=== PATIENT | female | born 1965 | race Two or more races ===

== ENCOUNTER 2019-05-25 16:38 | Inpatient (IN) | payer OTHER ==
[~2019-05-25] VITALS: Ht 165.1 cm; Wt 69.4 kg
[2019-05-25] MEDS ORDERED: HYDR-4076 GT (16:57)
[2019-05-25] MEDS ORDERED: LEVO50TA8 GT (16:57)
[2019-05-25] MEDS ORDERED: ASPI-1169 GT (16:57)
[2019-05-25] MEDS ORDERED: EPOE1VIA7 SQ (16:57)
[2019-05-25] MEDS ORDERED: LISI10TA5 GT (16:57)
[2019-05-25] MEDS ORDERED: ISOS40TA16 GT (16:57)
[2019-05-25] MEDS ORDERED: SIMV-49 GT (16:57)
[2019-05-25] MEDS ORDERED: GABA-534 GT (16:57)
[2019-05-25] MEDS ORDERED: NITR0.4T48 SL (16:57)
[2019-05-25] MEDS ORDERED: ACET-868 GT (16:57)
[2019-05-25] MEDS ORDERED: FAMO20TA8 GT (16:57)
[2019-05-25] MEDS ORDERED: HALO2TAB GT (16:57)
[2019-05-25] MEDS ORDERED: CLON0.1T GT (16:57)
[2019-05-25] MEDS ORDERED: ONDA4TAB5 GT (16:57)
[2019-05-25] MEDS ORDERED: DOCU50LI GT (16:57)
[2019-05-25] MEDS ORDERED: NUT.237L67 GT (16:57)
[2019-05-25] MEDS ORDERED: AMLO10TA7 GT (16:57)
[2019-05-25] MEDS ORDERED: CARV3.122 GT (16:57)
[2019-05-25] MEDS ORDERED: ESOM40CA GT (16:57)
[2019-05-25] MEDS ORDERED: MULT-447 GT (16:57)
[2019-05-25 17:43] LABS: BASOPHILS # (AUTO) 0.1 /CMM (0.0-0.2); BASOPHILS % (AUTO) 3.6 % (0.0-2.0); EOSINOPHILS % (AUTO) 5.5 % (0.0-6.0); HEMATOCRIT 24 % (33-45); LYMPHOCYTES # (AUTO) 0.9 /CMM (0.8-4.8); LYMPHOCYTES % (AUTO) 23.9 % (20.0-44.0); MEAN CORPUSCULAR HGB CONC 33 g/dl (31.0-36.0); MEAN CORPUSCULAR VOLUME 91 fL (82-100); MONOCYTES # (AUTO) 0.3 /CMM (0.1-1.30); MONOCYTES % (AUTO) 7.1 % (2.0-12.0); NEUTROPHILS # (AUTO) 2.3 /CMM (1.8-8.9); NEUTROPHILS % (AUTO) 59.9 % (43.0-81.0); PLATELET COUNT (AUTO) 140 /CMM (150-450); RED BLOOD CELL COUNT(AUTO) 2.64 MIL/uL (4.0-5.2); WHITE BLOOD COUNT (AUTO) 3.8 K/uL (4.3-11.0)
[2019-05-25 17:48] LABS: CALCIUM, SERUM 8.9 mg/dL (8.5-10.1); CREATININE 2.5 mg/dL (0.6-1.3); POTASSIUM 3.9 mmol/L (3.5-5.1)
[2019-05-25] MEDS ORDERED: NITROGLYCERIN PACKET 1 GM PACKET TOP ONE (18:00)
[2019-05-25] MEDS ORDERED: NITROGLYCERIN PACKET 1 GM PACKET ONE (18:00)
[2019-05-25] MEDS ORDERED: ASPIRIN 81 MG TAB.CHEW PO ONE (18:00)
[2019-05-25] MEDS ORDERED: ASPIRIN 81 MG TAB.CHEW ONE (18:01)
[2019-05-25] MEDS ORDERED: MAG HYDROX/AL HYDROX/SIMETH 30 ML UDC PO PRN (19:30)
[2019-05-25] MEDS ORDERED: DOCUSATE SODIUM LIQ 100 MG/10 ML UDC GT PRN (19:30)
[2019-05-25] MEDS ORDERED: NEPRO VAN 237 ML CAN GT SCH (19:30)
[2019-05-25] MEDS ORDERED: MAGNESIUM HYDROXIDE 30 ML UDC PO PRN (19:30)
[2019-05-25] MEDS ORDERED: Z GUARD REMEDY 2 OZ OINT TP PRN (19:30)
[2019-05-25] MEDS ORDERED: ACETAMINOPHEN 325 MG TABLET PO PRN (19:30)
[2019-05-25] MEDS ORDERED: Medication Not On Formulary EA (Ondansetron Hcl (Zofran) 4 MG) GT PRN (19:30)
[2019-05-25 20:00] VITALS: BP 116/51
[2019-05-25] MEDS: ISOSORBIDE DINITRATE (20MG) 20 MG TABLET GT SCH (20:52)
[2019-05-25] MEDS: ENOXAPARIN SODIUM 30 MG/0.3 ML DISP.SYRIN SQ SCH ×2 (20:53→22:12)
[2019-05-26] VITALS: BP 147/50
[2019-05-26] MEDS: ACETAMINOPHEN 325 MG TABLET PO PRN (03:10)
[2019-05-26 04:00] VITALS: BP 132/52
[2019-05-26 08:00] VITALS: BP 157/61
[2019-05-26] MEDS: HALOPERIDOL 1 MG TABLET GT SCH ×4 (09:00→18:30)
[2019-05-26] MEDS: PANTOPRAZOLE 40 MG/PACK PACK GT SCH (10:52)
[2019-05-26] MEDS: GABAPENTIN 300 MG CAPSULE GT SCH ×3 (10:52→18:30)
[2019-05-26] MEDS: CARVEDILOL 3.125 MG TABLET GT SCH ×2 (10:52→18:30)
[2019-05-26] MEDS: ISOSORBIDE DINITRATE (20MG) 20 MG TABLET GT SCH ×2 (10:53→18:30)
[2019-05-26] MEDS: AMLODIPINE BESYLATE 10 MG TABLET GT SCH (10:53)
[2019-05-26] MEDS: FAMOTIDINE (20 MG) 20 MG TABLET GT SCH (10:53)
[2019-05-26] MEDS: MULTIVITAMINS,THERAGRAN 1 UDTAB TABLET GT SCH (10:53)
[2019-05-26] MEDS: ASPIRIN 81 MG TAB.CHEW GT SCH (10:53)
[2019-05-26] MEDS: LEVOTHYROXINE SODIUM 50 MCG TABLET GT SCH (10:54)
[2019-05-26] MEDS: CLONIDINE HCL 0.1 MG TABLET GT SCH ×2 (12:00→19:10)
[2019-05-26] MEDS: hydrALAZINE HCL 25 MG TABLET GT SCH ×2 (12:00→19:10)
[2019-05-26] MEDS: LISINOPRIL (10MG) 10 MG TABLET GT SCH (12:00)
[2019-05-26] MEDS ORDERED: IOHEXOL-350 100 ML VIAL IV ONE (12:12)
[2019-05-26] MEDS ORDERED: IV NS 0.9% 250 ML IV ONE (12:13)
[2019-05-26] MEDS ORDERED: METOPROLOL TARTRATE INJ 5 MG/5 ML AMPUL IVP PRN (12:30)
[2019-05-26] MEDS ORDERED: NITROGLYCERIN 0.4 MG/TAB BOTTLE SL ONE (12:30)
[2019-05-26] MEDS ORDERED: METOPROLOL TARTRATE INJ 5 MG/5 ML AMPUL ONE (14:22)
[2019-05-26 16:00] VITALS: BP 129/68
[2019-05-26 16:49] LABS: ABG BASE EXCESS 5.6 mmol/L; ABG OXYGEN SATURATION 90.7 % (92.0-98.5); ABG PCO2 47.9 mmHg (35.0-45.0); ABG PH 7.424 (7.350-7.450); ABG PO2 62.2 mmHg (75.0-100.0); AaDO2 30.2 mmHg; COHb 0.7 % (0.5-1.5); MetHb 0.6 % (0.0-1.5); O2Hb 89.5 % (94.0-97.0); SITE, ABG Right Brachial
[2019-05-26 20:00] VITALS: BP 133/51
[2019-05-26 22:02] LABS: BASOPHILS # (AUTO) 0.2 /CMM (0.0-0.2); EOSINOPHILS % (AUTO) 8.4 % (0.0-6.0); HEMATOCRIT 21 % (33-45); HEMOGLOBIN 7.1 g/dL (11.5-14.8); LYMPHOCYTES # (AUTO) 1.2 /CMM (0.8-4.8); LYMPHOCYTES % (AUTO) 27.9 % (20.0-44.0); MEAN CORPUSCULAR HGB CONC 34 g/dl (31.0-36.0); MEAN CORPUSCULAR VOLUME 91 fL (82-100); MONOCYTES # (AUTO) 0.4 /CMM (0.1-1.30); MONOCYTES % (AUTO) 8.9 % (2.0-12.0); NEUTROPHILS # (AUTO) 2.1 /CMM (1.8-8.9); NEUTROPHILS % (AUTO) 50.8 % (43.0-81.0); PLATELET COUNT (AUTO) 140 /CMM (150-450); WHITE BLOOD COUNT (AUTO) 4.2 K/uL (4.3-11.0)
[2019-05-26 22:23] LABS: ALBUMIN 2.3 g/dL (3.4-5.0); BILIRUBIN,TOTAL 0.4 mg/dL (0.2-1.0); CALCIUM, SERUM 8.1 mg/dL (8.5-10.1); CREATININE 3.1 mg/dL (0.6-1.3); POTASSIUM 3.9 mmol/L (3.5-5.1); TOTAL PROTEIN, SERUM 5.5 g/dL (6.4-8.2)
[2019-05-26 22:24] LABS: MAGNESIUM 2.3 mg/dL (1.8-2.4); PHOSPHORUS 2.4 mg/dL (2.5-4.9)
[2019-05-26 22:58] LABS: THYROID STIMULATING HORMONE 4.477 uIU/mL (0.358-3.74)
[2019-05-26] MEDS ORDERED: NEPRO 1,000 ML BOTTLE GT PRN (23:00)
[2019-05-26] MEDS: SIMVASTATIN 20 MG TABLET GT SCH (23:36)
[2019-05-26] MEDS: HYDROCODONE/APAP 5/325MG 1 EACH TABLET PO PRN (23:43)
[2019-05-27 08:00] VITALS: BP 150/64
[2019-05-27] MEDS: HALOPERIDOL 1 MG TABLET GT SCH ×3 (08:31→18:09)
[2019-05-27] MEDS: ONDANSETRON HCL/PF 4 MG/2 ML VIAL IVP PRN ×2 (08:32→13:48)
[2019-05-27] MEDS: GABAPENTIN 300 MG CAPSULE GT SCH ×3 (09:00→18:10)
[2019-05-27] MEDS ORDERED: REGADENOSON 0.4 MG/5 ML DISP.SYRIN IVP ONE (09:00)
[2019-05-27] MEDS: hydrALAZINE HCL 25 MG TABLET GT SCH ×2 (09:00→18:50)
[2019-05-27] MEDS: ISOSORBIDE DINITRATE (20MG) 20 MG TABLET GT SCH ×2 (09:00→18:09)
[2019-05-27] MEDS: CLONIDINE HCL 0.1 MG TABLET GT SCH ×2 (09:00→18:50)
[2019-05-27] MEDS: CARVEDILOL 3.125 MG TABLET GT SCH ×2 (09:00→18:10)
[2019-05-27 16:00] VITALS: BP 155/63
[2019-05-27] MEDS: ASPIRIN 81 MG TAB.CHEW GT SCH (16:28)
[2019-05-27] MEDS: FAMOTIDINE (20 MG) 20 MG TABLET GT SCH (16:31)
[2019-05-27] MEDS: LEVOTHYROXINE SODIUM 50 MCG TABLET GT SCH (16:31)
[2019-05-27] MEDS: LISINOPRIL (10MG) 10 MG TABLET GT SCH (16:31)
[2019-05-27] MEDS: MULTIVITAMINS,THERAGRAN 1 UDTAB TABLET GT SCH (16:31)
[2019-05-27] MEDS: PANTOPRAZOLE 40 MG/PACK PACK GT SCH (16:31)
[2019-05-27] MEDS: EPOETIN ALFA (10,000 UNIT) 10,000 UNIT/ML VIAL SQ SCH (16:36)
[2019-05-27] MEDS: AMLODIPINE BESYLATE 10 MG TABLET GT SCH (16:37)
[2019-05-27 20:35] VITALS: BP 129/50
[2019-05-27] MEDS: IV D5/ 0.9% NACL 1,000 ML IV PRN (20:35)
[2019-05-27] MEDS: SIMVASTATIN 20 MG TABLET GT SCH (22:59)
[2019-05-28 08:00] VITALS: BP 155/77
[2019-05-28] MEDS: HALOPERIDOL 1 MG TABLET GT SCH ×3 (08:56→17:09)
[2019-05-28] MEDS: GABAPENTIN 300 MG CAPSULE GT SCH ×3 (08:56→17:09)
[2019-05-28] MEDS: MULTIVITAMINS,THERAGRAN 1 UDTAB TABLET GT SCH (08:56)
[2019-05-28] MEDS: PANTOPRAZOLE 40 MG/PACK PACK GT SCH (08:56)
[2019-05-28] MEDS: FAMOTIDINE (20 MG) 20 MG TABLET GT SCH (08:56)
[2019-05-28] MEDS: LEVOTHYROXINE SODIUM 50 MCG TABLET GT SCH (08:56)
[2019-05-28] MEDS: LISINOPRIL (10MG) 10 MG TABLET GT SCH (09:00)
[2019-05-28] MEDS: ISOSORBIDE DINITRATE (20MG) 20 MG TABLET GT SCH ×2 (09:00→17:08)
[2019-05-28] MEDS: CLONIDINE HCL 0.1 MG TABLET GT SCH ×2 (09:00→17:09)
[2019-05-28] MEDS: hydrALAZINE HCL 25 MG TABLET GT SCH ×2 (09:00→17:09)
[2019-05-28] MEDS: CARVEDILOL 3.125 MG TABLET GT SCH ×2 (09:00→17:00)
[2019-05-28] MEDS: AMLODIPINE BESYLATE 10 MG TABLET GT SCH (09:00)
[2019-05-28] MEDS: ACETAMINOPHEN 325 MG TABLET PO PRN (09:35)
[2019-05-28 11:38] LABS: BASOPHILS # (AUTO) 0.1 /CMM (0.0-0.2); BASOPHILS % (AUTO) 2.9 % (0.0-2.0); EOSINOPHILS % (AUTO) 7.1 % (0.0-6.0); HEMATOCRIT 21 % (33-45); LYMPHOCYTES # (AUTO) 0.7 /CMM (0.8-4.8); LYMPHOCYTES % (AUTO) 14.5 % (20.0-44.0); MEAN CORPUSCULAR HGB CONC 33 g/dl (31.0-36.0); MEAN CORPUSCULAR VOLUME 93 fL (82-100); MONOCYTES # (AUTO) 0.3 /CMM (0.1-1.30); MONOCYTES % (AUTO) 6.5 % (2.0-12.0); NEUTROPHILS # (AUTO) 3.1 /CMM (1.8-8.9); PLATELET COUNT (AUTO) 137 /CMM (150-450); RED BLOOD CELL COUNT(AUTO) 2.29 MIL/uL (4.0-5.2); WHITE BLOOD COUNT (AUTO) 4.5 K/uL (4.3-11.0)
[2019-05-28 12:25] LABS: CREATININE 3.2 mg/dL (0.6-1.3); MAGNESIUM 2.5 mg/dL (1.8-2.4); PHOSPHORUS 2.6 mg/dL (2.5-4.9)
[2019-05-28] MEDS: PANTOPRAZOLE 40 MG VIAL IV SCH (13:07)
[2019-05-28 15:46] VITALS: BP 118/99
[2019-05-28 16:00] VITALS: BP 127/58
[2019-05-28 20:01] VITALS: BP 124/61
[2019-05-28 20:20] VITALS: BP 124/61
[2019-05-28] MEDS: IV D5/ 0.9% NACL 1,000 ML IV PRN (20:51)
[2019-05-28] MEDS: SIMVASTATIN 20 MG TABLET GT SCH (21:16)
[2019-05-29] VITALS (8 sets, daily range): BP systolic 122–156; BP diastolic 52–79
[2019-05-29] MEDS: LEVOTHYROXINE SODIUM 50 MCG TABLET GT SCH (07:30)
[2019-05-29] MEDS: hydrALAZINE HCL 25 MG TABLET GT SCH ×2 (08:31→17:58)
[2019-05-29] MEDS: CARVEDILOL 3.125 MG TABLET GT SCH ×2 (08:31→17:58)
[2019-05-29] MEDS: CLONIDINE HCL 0.1 MG TABLET GT SCH ×2 (08:31→17:57)
[2019-05-29] MEDS: LISINOPRIL (10MG) 10 MG TABLET GT SCH (08:32)
[2019-05-29] MEDS: GABAPENTIN 300 MG CAPSULE GT SCH ×3 (08:32→17:57)
[2019-05-29] MEDS: FAMOTIDINE (20 MG) 20 MG TABLET GT SCH (08:32)
[2019-05-29] MEDS: HALOPERIDOL 1 MG TABLET GT SCH ×3 (08:32→17:57)
[2019-05-29] MEDS: MULTIVITAMINS,THERAGRAN 1 UDTAB TABLET GT SCH (08:32)
[2019-05-29] MEDS: ISOSORBIDE DINITRATE (20MG) 20 MG TABLET GT SCH ×2 (08:32→17:57)
[2019-05-29] MEDS: AMLODIPINE BESYLATE 10 MG TABLET GT SCH (08:32)
[2019-05-29 09:27] LABS: BASOPHILS # (AUTO) 0.1 /CMM (0.0-0.2); BASOPHILS % (AUTO) 1.3 % (0.0-2.0); EOSINOPHILS % (AUTO) 7.1 % (0.0-6.0); HEMATOCRIT 22 % (33-45); HEMOGLOBIN 7.3 g/dL (11.5-14.8); LYMPHOCYTES # (AUTO) 0.6 /CMM (0.8-4.8); LYMPHOCYTES % (AUTO) 15.1 % (20.0-44.0); MEAN CORPUSCULAR HGB CONC 33 g/dl (31.0-36.0); MEAN CORPUSCULAR VOLUME 94 fL (82-100); MONOCYTES # (AUTO) 0.3 /CMM (0.1-1.30); MONOCYTES % (AUTO) 7.4 % (2.0-12.0); NEUTROPHILS # (AUTO) 2.8 /CMM (1.8-8.9); NEUTROPHILS % (AUTO) 69.1 % (43.0-81.0); PLATELET COUNT (AUTO) 151 /CMM (150-450); RED BLOOD CELL COUNT(AUTO) 2.37 MIL/uL (4.0-5.2)
[2019-05-29 09:42] LABS: MAGNESIUM 1.9 mg/dL (1.8-2.4); PHOSPHORUS 1.7 mg/dL (2.5-4.9)
[2019-05-29] MEDS: ACETAMINOPHEN 325 MG TABLET PO PRN (10:44)
[2019-05-29 11:25] LABS: CALCIUM, SERUM 7.9 mg/dL (8.5-10.1); CREATININE 2.4 mg/dL (0.6-1.3); POTASSIUM 3.3 mmol/L (3.5-5.1)
[2019-05-29] MEDS: PANTOPRAZOLE 40 MG VIAL IV SCH (13:42)
[2019-05-29] MEDS: EPOETIN ALFA (10,000 UNIT) 10,000 UNIT/ML VIAL SQ SCH (16:43)
[2019-05-29] MEDS: IV D5/ 0.9% NACL 1,000 ML IV PRN (18:06)
[2019-05-29] MEDS: SIMVASTATIN 20 MG TABLET GT SCH (22:31)
[2019-05-30] VITALS (7 sets, daily range): BP systolic 106–161; BP diastolic 52–71
[2019-05-30] MEDS: NITROGLYCERIN 0.4 MG/TAB BOTTLE SL PRN ×2 (01:32→01:38)
[2019-05-30 07:35] LABS: BASOPHILS # (AUTO) 0.1 /CMM (0.0-0.2); BASOPHILS % (AUTO) 2.8 % (0.0-2.0); EOSINOPHILS % (AUTO) 6.2 % (0.0-6.0); HEMATOCRIT 31 % (33-45); HEMOGLOBIN 10.4 g/dL (11.5-14.8); LYMPHOCYTES # (AUTO) 0.8 /CMM (0.8-4.8); LYMPHOCYTES % (AUTO) 16.3 % (20.0-44.0); MEAN CORPUSCULAR HGB CONC 34 g/dl (31.0-36.0); MEAN CORPUSCULAR VOLUME 93 fL (82-100); MONOCYTES # (AUTO) 0.4 /CMM (0.1-1.30); NEUTROPHILS # (AUTO) 3.3 /CMM (1.8-8.9); NEUTROPHILS % (AUTO) 66.7 % (43.0-81.0); PLATELET COUNT (AUTO) 134 /CMM (150-450); RED BLOOD CELL COUNT(AUTO) 3.31 MIL/uL (4.0-5.2); WHITE BLOOD COUNT (AUTO) 4.9 K/uL (4.3-11.0)
[2019-05-30 07:40] LABS: CALCIUM, SERUM 8.5 mg/dL (8.5-10.1); CREATININE 2.3 mg/dL (0.6-1.3); PHOSPHORUS 1.6 mg/dL (2.5-4.9); POTASSIUM 3.5 mmol/L (3.5-5.1)
[2019-05-30] MEDS: CARVEDILOL 3.125 MG TABLET GT SCH ×2 (09:21→17:21)
[2019-05-30] MEDS: hydrALAZINE HCL 25 MG TABLET GT SCH ×2 (09:21→17:20)
[2019-05-30] MEDS: LEVOTHYROXINE SODIUM 50 MCG TABLET GT SCH (09:21)
[2019-05-30] MEDS: CLONIDINE HCL 0.1 MG TABLET GT SCH ×2 (09:21→17:20)
[2019-05-30] MEDS: HALOPERIDOL 1 MG TABLET GT SCH ×3 (09:21→17:21)
[2019-05-30] MEDS: AMLODIPINE BESYLATE 10 MG TABLET GT SCH (09:22)
[2019-05-30] MEDS: GABAPENTIN 300 MG CAPSULE GT SCH ×3 (09:22→17:21)
[2019-05-30] MEDS: LISINOPRIL (10MG) 10 MG TABLET GT SCH (09:22)
[2019-05-30] MEDS: FAMOTIDINE (20 MG) 20 MG TABLET GT SCH (09:22)
[2019-05-30] MEDS: ISOSORBIDE DINITRATE (20MG) 20 MG TABLET GT SCH ×2 (09:22→17:21)
[2019-05-30] MEDS: MULTIVITAMINS,THERAGRAN 1 UDTAB TABLET GT SCH (09:22)
[2019-05-30] MEDS: PANTOPRAZOLE 40 MG VIAL IV SCH (13:53)
[2019-05-30] MEDS ORDERED: NEUTRA PHOS 1 POWD.PACKET GT ONE ×2 (15:30→18:00)
[2019-05-30] MEDS: NEPRO 1,000 ML BOTTLE GT PRN (17:21)
[2019-05-30] MEDS: IV D5/ 0.9% NACL 1,000 ML IV PRN (19:38)
[2019-05-30] MEDS: SIMVASTATIN 20 MG TABLET GT SCH (21:10)
[2019-05-31] MEDS: MORPHINE SULFATE INJ 4 MG/ML DISP.SYRIN IV PRN (01:38)
[2019-05-31] MEDS: LEVOTHYROXINE SODIUM 50 MCG TABLET GT SCH (07:30)
[2019-05-31 08:00] VITALS: BP 133/74
[2019-05-31] MEDS: hydrALAZINE HCL 25 MG TABLET GT SCH ×2 (08:25→17:03)
[2019-05-31] MEDS: HALOPERIDOL 1 MG TABLET GT SCH ×3 (08:25→17:03)
[2019-05-31] MEDS: CLONIDINE HCL 0.1 MG TABLET GT SCH ×2 (08:25→17:03)
[2019-05-31] MEDS: CARVEDILOL 3.125 MG TABLET GT SCH ×2 (08:25→17:04)
[2019-05-31] MEDS: FAMOTIDINE (20 MG) 20 MG TABLET GT SCH (08:26)
[2019-05-31] MEDS: AMLODIPINE BESYLATE 10 MG TABLET GT SCH (08:26)
[2019-05-31] MEDS: LISINOPRIL (10MG) 10 MG TABLET GT SCH (08:26)
[2019-05-31] MEDS: MULTIVITAMINS,THERAGRAN 1 UDTAB TABLET GT SCH (08:26)
[2019-05-31] MEDS: GABAPENTIN 300 MG CAPSULE GT SCH ×3 (08:26→17:03)
[2019-05-31] MEDS: ISOSORBIDE DINITRATE (20MG) 20 MG TABLET GT SCH ×2 (08:26→17:03)
[2019-05-31] MEDS: PANTOPRAZOLE 40 MG VIAL IV SCH (12:08)
[2019-05-31 13:08] LABS: BASOPHILS # (AUTO) 0.1 /CMM (0.0-0.2); BASOPHILS % (AUTO) 1.4 % (0.0-2.0); EOSINOPHILS % (AUTO) 5.8 % (0.0-6.0); HEMATOCRIT 30 % (33-45); HEMOGLOBIN 10.1 g/dL (11.5-14.8); LYMPHOCYTES # (AUTO) 0.7 /CMM (0.8-4.8); LYMPHOCYTES % (AUTO) 16.5 % (20.0-44.0); MEAN CORPUSCULAR HGB CONC 33 g/dl (31.0-36.0); MEAN CORPUSCULAR VOLUME 94 fL (82-100); MONOCYTES # (AUTO) 0.4 /CMM (0.1-1.30); MONOCYTES % (AUTO) 8.3 % (2.0-12.0); PLATELET COUNT (AUTO) 142 /CMM (150-450); RED BLOOD CELL COUNT(AUTO) 3.22 MIL/uL (4.0-5.2); WHITE BLOOD COUNT (AUTO) 4.4 K/uL (4.3-11.0)
[2019-05-31 13:19] LABS: CALCIUM, SERUM 8.4 mg/dL (8.5-10.1); CREATININE 2.6 mg/dL (0.6-1.3); POTASSIUM 4.5 mmol/L (3.5-5.1)
[2019-05-31 16:00] VITALS: BP 151/65
[2019-05-31] MEDS: ACETAMINOPHEN 325 MG TABLET PO PRN (17:05)
[2019-05-31] MEDS: NEPRO 1,000 ML BOTTLE GT PRN (17:06)
[2019-05-31] MEDS: IV D5/ 0.9% NACL 1,000 ML IV PRN (19:18)
[2019-05-31 20:00] VITALS: BP 137/51
[2019-05-31] MEDS: SIMVASTATIN 20 MG TABLET GT SCH (21:15)
[2019-05-31 21:28] VITALS: BP 137/51
[2019-06-01] MEDS: HYDROCODONE/APAP 5/325MG 1 EACH TABLET PO PRN (01:38)
[2019-06-01 08:16] VITALS: BP 141/68
[2019-06-01] MEDS: CARVEDILOL 3.125 MG TABLET GT SCH ×2 (09:26→18:31)
[2019-06-01] MEDS: ISOSORBIDE DINITRATE (20MG) 20 MG TABLET GT SCH ×2 (09:26→18:30)
[2019-06-01] MEDS: MULTIVITAMINS,THERAGRAN 1 UDTAB TABLET GT SCH (09:27)
[2019-06-01] MEDS: GABAPENTIN 300 MG CAPSULE GT SCH ×3 (09:27→18:31)
[2019-06-01] MEDS: HALOPERIDOL 1 MG TABLET GT SCH ×3 (09:27→18:31)
[2019-06-01] MEDS: FAMOTIDINE (20 MG) 20 MG TABLET GT SCH (09:27)
[2019-06-01] MEDS: AMLODIPINE BESYLATE 10 MG TABLET GT SCH (09:27)
[2019-06-01] MEDS: LEVOTHYROXINE SODIUM 50 MCG TABLET GT SCH (09:30)
[2019-06-01] MEDS ORDERED: PANT40TA2 PO (10:03)
[2019-06-01] MEDS: LISINOPRIL (10MG) 10 MG TABLET GT SCH (11:04)
[2019-06-01] MEDS: CLONIDINE HCL 0.1 MG TABLET GT SCH ×2 (12:00→18:31)
[2019-06-01] MEDS: hydrALAZINE HCL 25 MG TABLET GT SCH ×2 (12:00→19:15)
[2019-06-01] MEDS: PANTOPRAZOLE 40 MG VIAL IV SCH (13:57)
[2019-06-01] MEDS: EPOETIN ALFA (10,000 UNIT) 10,000 UNIT/ML VIAL SQ SCH (16:33)
[2019-06-01] MEDS: NEPRO 1,000 ML BOTTLE GT PRN (16:41)
[2019-06-01 17:21] LABS: BASOPHILS # (AUTO) 0.1 /CMM (0.0-0.2); BASOPHILS % (AUTO) 1.9 % (0.0-2.0); EOSINOPHILS % (AUTO) 5.9 % (0.0-6.0); HEMATOCRIT 31 % (33-45); HEMOGLOBIN 10.3 g/dL (11.5-14.8); LYMPHOCYTES # (AUTO) 0.8 /CMM (0.8-4.8); LYMPHOCYTES % (AUTO) 11.4 % (20.0-44.0); MEAN CORPUSCULAR HGB CONC 33 g/dl (31.0-36.0); MEAN CORPUSCULAR VOLUME 95 fL (82-100); MONOCYTES # (AUTO) 0.5 /CMM (0.1-1.30); MONOCYTES % (AUTO) 7.7 % (2.0-12.0); NEUTROPHILS # (AUTO) 4.9 /CMM (1.8-8.9); NEUTROPHILS % (AUTO) 73.1 % (43.0-81.0); PLATELET COUNT (AUTO) 133 /CMM (150-450); RED BLOOD CELL COUNT(AUTO) 3.31 MIL/uL (4.0-5.2); WHITE BLOOD COUNT (AUTO) 6.7 K/uL (4.3-11.0)
[2019-06-01 17:37] LABS: CALCIUM, SERUM 9.7 mg/dL (8.5-10.1); CREATININE 3.3 mg/dL (0.6-1.3); MAGNESIUM 2.2 mg/dL (1.8-2.4); PHOSPHORUS 2.5 mg/dL (2.5-4.9); POTASSIUM 3.6 mmol/L (3.5-5.1)
[2019-06-01 19:55] VITALS: BP 139/57
[2019-06-01 20:13] VITALS: BP 139/57
[2019-06-01] MEDS: IV D5/ 0.9% NACL 1,000 ML IV PRN (20:33)
[2019-06-01] MEDS: SIMVASTATIN 20 MG TABLET GT SCH (21:08)
[2019-06-02] MEDS: ACETAMINOPHEN 325 MG TABLET PO PRN (01:49)
[2019-06-02] MEDS: HYDROCODONE/APAP 5/325MG 1 EACH TABLET PO PRN (02:34)
[2019-06-02] MEDS: MORPHINE SULFATE INJ 4 MG/ML DISP.SYRIN IV PRN (05:12)
[2019-06-02 08:00] VITALS: BP 132/68
[2019-06-02] MEDS: LEVOTHYROXINE SODIUM 50 MCG TABLET GT SCH (08:14)
[2019-06-02] MEDS: MULTIVITAMINS,THERAGRAN 1 UDTAB TABLET GT SCH (08:50)
[2019-06-02] MEDS: GABAPENTIN 300 MG CAPSULE GT SCH ×2 (08:50→13:47)
[2019-06-02] MEDS: HALOPERIDOL 1 MG TABLET GT SCH ×2 (08:50→13:47)
[2019-06-02] MEDS: FAMOTIDINE (20 MG) 20 MG TABLET GT SCH (08:50)
[2019-06-02] MEDS: AMLODIPINE BESYLATE 10 MG TABLET GT SCH (08:51)
[2019-06-02] MEDS: CLONIDINE HCL 0.1 MG TABLET GT SCH (08:51)
[2019-06-02] MEDS: ISOSORBIDE DINITRATE (20MG) 20 MG TABLET GT SCH (08:51)
[2019-06-02] MEDS: hydrALAZINE HCL 25 MG TABLET GT SCH (08:51)
[2019-06-02] MEDS: CARVEDILOL 3.125 MG TABLET GT SCH (08:51)
[2019-06-02] MEDS: LISINOPRIL (10MG) 10 MG TABLET GT SCH (08:51)
[2019-06-02] MEDS: PANTOPRAZOLE 40 MG VIAL IV SCH (12:54)
[2019-06-02 16:00] VITALS: BP 123/60
== END 2019-06-02 16:22 | disposition home or self-care (01) | DRG 241 ==
LOC: ER 16:41 → TELE 19:35 → MED 05-26 09:02
PROVIDERS: ADMIT Internal Medicine; ATTEND Internal Medicine
PROC: 05HB33Z Insertion of Infusion Device into Right Basilic Vein, Percutaneous Approach (ICD-10-PCS; principal; 2019-05-26)
PROC: 5A1D70Z Performance of Urinary Filtration, Intermittent, Less than 6 Hours Per Day (ICD-10-PCS; principal; 2019-05-26)
PROC: 30233N1 Transfusion of Nonautologous Red Blood Cells into Peripheral Vein, Percutaneous Approach (ICD-10-PCS; 2019-05-29)
PROC: 0DJ08ZZ Inspection of Upper Intestinal Tract, Via Natural or Artificial Opening Endoscopic (ICD-10-PCS; 2019-05-31)
DX: K29.71 Gastritis, unspecified, with bleeding (principal); D61.818 Other pancytopenia; J90 Pleural effusion, not elsewhere classified; J96.11 Chronic respiratory failure with hypoxia; J96.12 Chronic respiratory failure with hypercapnia; I12.0 Hypertensive chronic kidney disease with stage 5 chronic kidney disease or end stage renal disease; K21.9 Gastro-esophageal reflux disease without esophagitis; E11.22 Type 2 diabetes mellitus with diabetic chronic kidney disease; N18.6 End stage renal disease; I25.10 Atherosclerotic heart disease of native coronary artery without angina pectoris; E03.9 Hypothyroidism, unspecified; R13.10 Dysphagia, unspecified; Z79.82 Long term (current) use of aspirin; Z79.899 Other long term (current) drug therapy; E78.5 Hyperlipidemia, unspecified; D63.1 Anemia in chronic kidney disease; Z99.2 Dependence on renal dialysis; G62.9 Polyneuropathy, unspecified; F29 Unspecified psychosis not due to a substance or known physiological condition; Z98.890 Other specified postprocedural states; E66.2 Morbid (severe) obesity with alveolar hypoventilation; N25.0 Renal osteodystrophy; Z86.718 Personal history of other venous thrombosis and embolism; I70.0 Atherosclerosis of aorta
CPT/HCPCS: 36410; 36415; 36600; 71045-TC; 75574; 80048-TC; 80053-TC; 80061-TC; 82728-TC; 82803-TC; 82962-TC; 83540-TC; 83735-TC; 84100-TC; 84439-TC; 84443-TC; 84484-TC; 84702-TC; 85025-TC; 86706; 86850-TC; 86921-TC; 87081-TC; 87340; 90935-TC; 93307-TC; 93970-TC; A9502; C9113; G0378; J0885; J1650; J2270; J2405; J2785; J3490; J7042; J7050; P9016-BL; Q9967